=== PATIENT | male | born 1995 | race African-American/Black ===

== ENCOUNTER 2021-04-29 14:58 | Emergency (ER) | payer OTHER, SELFPAY ==
[2021-04-29 15:05] VITALS: BP 137/71; PULSE 86; RESP 20; TEMP 37.1; O2SAT 98
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
[2021-04-29] MEDS: IBUPROFEN 600 MG TABLET PO (17:00)
== END 2021-04-29 17:02 | disposition home or self-care (01) ==
PROVIDERS: Emergency Provider Emergency Medicine; PCP Nurse Practitioner
DX: S16.1XXA Strain of muscle, fascia and tendon at neck level, initial encounter (principal); M79.605 Pain in left leg; M79.602 Pain in left arm; V49.40XA Driver injured in collision with unspecified motor vehicles in traffic accident, initial encounter
CPT/HCPCS: 99283; A9270

== ENCOUNTER 2021-07-22 14:48 | Outpatient (CLI) | payer OTHER, SELFPAY ==
--- NOTE | ~2021-07-22 | XR_ITS ---
EXAMINATION: XR cervical spine min 6V EXAM DATE: 07/22/2021 15:37 INDICATION: Neck pain. TECHNIQUE: Cervical spine frontal, lateral, lateral swimmers, and open-mouth odontoid projections. There is no prior study for comparison. FINDINGS: Straightening of normal cervical lordosis could be positional or spasm. There is no evidenc e of acute cervical fracture. The odontoid process is intact. Pre-dens space is normal. Prevertebr al soft tissue is normal. There are no soft tissue abnormalities identified. Vertebral body and dis c heights are well-maintained. The vertebral bodies are aligned. Expected amount of motion on the flexion and extension projections. IMPRESSION: Cervical straightening, otherwise unremarkable exam. Reviewed, dictated and finalized at location G.
--- NOTE | ~2021-07-22 | XR_ITS ---
EXAMINATION: XR lumbar spine 2-3V EXAM DATE: 07/22/2021 15:37 INDICATION: Low back pain. TECHNIQUE: Lumber spine frontal, lateral, lateral L5-S1 projections for interpretation. There is no prior study for comparison. FINDINGS: The vertebral bodies are aligned in the AP dimension. Vertebral body and disc heights are well-maintained. The facet joints are unremarkable. There are no bony erosions identified. Sacrum, sa croiliac joints, sacral arcuate lines are intact. Paraspinal soft tissue is unremarkable. IMPRESSION: Unremarkable lumbar x-ray exam. Reviewed, dictated and finalized at location G.
--- NOTE | ~2021-07-22 | XR_ITS ---
EXAMINATION: XR thoracic spine 2V EXAM DATE: 07/22/2021 15:37 INDICATION: Thoracic pain. TECHNIQUE: Frontal and lateral projections of the thoracic spine as well as lateral swimmers projecti on of the upper thoracic spine for interpretation. There is no prior study for comparison. FINDINGS: The vertebral bodies are aligned in the AP dimension. Vertebral body and disc heights are w ell-maintained. There are no bony erosions identified. There are no acute fractures identified. Slava ama soft tissue is unremarkable. IMPRESSION: Unremarkable XR thoracic spine 2V exam. Reviewed, dictated and finalized at location G.
== END 2021-07-22 14:49 | disposition home or self-care (01) ==
LOC: ANHIMG 14:56
PROVIDERS: PCP Nurse Practitioner; Visit Provider Chiropractor
DX: M54.2 Cervicalgia (principal); M54.6 Pain in thoracic spine; M54.5 Low back pain
CPT/HCPCS: 72052; 72070; 72100

== ENCOUNTER 2022-02-01 10:05 | Outpatient (RCR) | payer OTHER, SELFPAY ==
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
--- NOTE | 2022-02-08 14:58 | PCPTNOTE ---
Patient no showed to appointment this date. Called and left voicemail.
--- NOTE | 2022-02-22 16:57 | PCPTNOTE ---
Patient no showed to appointment. This is patient's 3rd no show and PT will be notified for discharge per compliance policy. Patient will need new order to be seen for therapy.
--- NOTE | 2022-03-01 14:34 | PCPTNOTE ---
PHYSICAL THERAPY DISCHARGE NOTIFICATION Attending Provider: Melissa Becerra NP Patient:Basilio Serrano Date of :1995 Patient has not returned for any further treatments since 02/01/2022, therefore will be discharged at this time. Patient?s initial visit was on 02/01/2022 and had a total of 1 visits. Thank you for referring this patient to [facility]. Please review, sign, date and return this discharge summary DEJA. I have been updated about the patient's current status and I agree with discharge from the above service at this time. Referring Physician Date
== END 2022-03-02 09:18 | disposition home or self-care (01) ==
LOC: ANHPT 10:05
PROVIDERS: PCP Internal Medicine; Visit Provider Nurse Practitioner
DX: M54.2 Cervicalgia (principal); V89.2XXA Person injured in unspecified motor-vehicle accident, traffic, initial encounter
CPT/HCPCS: 97110; 97161